=== PATIENT | male | born 1995 | race Caucasian/White ===

== ENCOUNTER 2020-08-09 03:00 | Emergency (ER) | payer SELFPAY ==
[~2020-08-09] VITALS: Ht 177.8 cm; Wt 68.0 kg
[2020-08-09] MEDS ORDERED: KETOROLAC 30MG/ML VIAL IV STA (03:04)
[2020-08-09] MEDS ORDERED: ONDANSETRON HCL 4MG/2ML INJ IV STA (03:04)
[2020-08-09 03:37] LABS: BASOPHILS % 0.7 % (0.0-2.0); EOSINOPHILS % 0.3 % (0.0-5.0); HEMATOCRIT. 43.9 % (42.0-52.0); HEMOGLOBIN. 14.9 g/dL (14.0-18.0); LYMPHOCYTES % 24.6 % (20.0-50.0); MEAN CORPUSCULAR HEMOGLOBIN 29.4 pg (28.0-32.0); MEAN CORPUSCULAR VOLUME 86.4 fL (80.0-94.0); MEAN PLATELET VOLUME 8.9 fl (7.4-10.4); NEUTROPHILS % 69.4 % (40.0-76.0); PLATELET 220 x1000/uL (130-400); RED BLOOD CELL COUNT 5.08 mill/uL (4.7-6.1); RED CELL DISTRIBUTION WIDTH 12.7 % (11.6-14.6)
[2020-08-09 03:39] LABS: CHLORIDE 108 mEq/L (98-107)
[2020-08-09 03:43] LABS: INR 1.1; PROTHROMBIN TIME 12.1 sec (9.6-11.0)
[2020-08-09 03:44] LABS: ETHANOL BLOOD 225 mg/dL
[2020-08-09 04:24] VITALS: BP 121/68
[2020-08-09] MEDS ORDERED: VISCOUS LIDOCAINE 2% 15 ML UDC PO SCH (04:42)
[2020-08-09] MEDS ORDERED: MAGNESIUM/ALUMINUM HYDROXIDE/SIMETHICONE 30ML UDC PO SCH (04:42)
[2020-08-09] MEDS ORDERED: POTASSIUM CHLORIDE 20MEQ TABLET SR PO SCH (04:45)
== END 2020-08-09 06:55 | disposition home or self-care (01) ==
LOC: ER 03:00
DX: F10.229 Alcohol dependence with intoxication, unspecified (principal); R10.13 Epigastric pain; F12.10 Cannabis abuse, uncomplicated; Y90.7 Blood alcohol level of 200-239 mg/100 ml
CPT/HCPCS: 36415; 80053; 80320; 83690; 85025; 85610; 93005; 96374; 96375; 99284; J1885; J2405; Z7610; G0480